=== PATIENT | male | born 1995 | race Hispanic/Latino ===

== ENCOUNTER 2021-05-30 20:40 | Emergency (ER) | payer OTHER ==
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
[2021-05-31 01:41] VITALS: BP 108/64
== END 2021-05-31 01:47 | disposition home or self-care (01) ==
LOC: ED 20:40
DX: R51.9 Headache, unspecified (principal); R42 Dizziness and giddiness
CPT/HCPCS: 99282